=== PATIENT | male | born 1990 | race Caucasian/White ===

== ENCOUNTER 2025-06-12 11:39 | Emergency (ER) | payer OTHER, MEDICAID ==
[~2025-06-12] VITALS: Ht 188 cm; Wt 145.0 kg
[2025-06-12 11:42] VITALS: O2SAT 97
[2025-06-12 12:10] VITALS: BP 149/89; PULSE 103; RESP 16; TEMP 36.8; O2SAT 98
== END 2025-06-12 12:59 | disposition home or self-care (01) ==
LOC: ER 11:39
DX: E11.9 Type 2 diabetes mellitus without complications (principal); I10 Essential (primary) hypertension; M25.552 Pain in left hip; V43.52XA Car driver injured in collision with other type car in traffic accident, initial encounter; Y93.89 Activity, other specified; Y92.410 Unspecified street and highway as the place of occurrence of the external cause; Y99.8 Other external cause status
CPT/HCPCS: 82962; 99283